=== PATIENT | male | born 1955 | race Caucasian/White ===

== ENCOUNTER 2021-12-07 10:54 | Emergency (ER) | payer MEDICARE, OTHER ==
[2021-12-07] MEDS: Lidocaine 1% 5 ML VIAL INJECT ONE (11:10)
== END 2021-12-07 11:30 | disposition home or self-care (01) ==
LOC: VM.ED 10:54
DX: S61.411A Laceration without foreign body of right hand, initial encounter (principal); W26.8XXA Contact with other sharp object(s), not elsewhere classified, initial encounter
CPT/HCPCS: 12001; 99282-25; 99283